=== PATIENT | female | born 1955 | race Caucasian/White ===

== ENCOUNTER → 2019-05-25 | Outpatient (CLI) | payer MEDICARE ==
[~2019-05-25] MED LIST: NOHOMEMEDICATIONS
== END ==
LOC: M.RAD 05-14 09:06
DX: M85.88 Other specified disorders of bone density and structure, other site (principal); N91.2 Amenorrhea, unspecified; F41.1 Generalized anxiety disorder; F41.9 Anxiety disorder, unspecified; G45.9 Transient cerebral ischemic attack, unspecified; K92.1 Melena; K22.70 Barrett's esophagus without dysplasia